=== PATIENT | female | born 1955 | race Caucasian/White ===

== ENCOUNTER → 2016-06-24 | Outpatient (CLI) | payer OTHER ==
--- NOTE | 2016-06-24 10:07 | MAM ---
History: Well woman exam. Date of exam: 06/24/2016 Services provided: Bilateral full field digital screening mammography. CAD, the images were reviewed with R2 computer aided detection. FINDINGS: Glandular tissue is scattered glandular contour with slight nodularity. Comparison with 2010 study. No dominant mass, architectural distortion or clustered microcalcification. IMPRESSION: Benign exam Recommendation: Routine annual mammography BIRAD CATEGORY: 2 BENIGN Electronically signed by: Ligia Tavera MD 06/24/2016 10:06 AM CDT
== END | disposition home or self-care (01) ==
LOC: MAMMO 08:59
PROVIDERS: ATTEND Family Medicine
DX: Z12.31 Encounter for screening mammogram for malignant neoplasm of breast (principal)

== ENCOUNTER → 2016-07-08 | Outpatient (CLI) | payer OTHER | END | disposition home or self-care (01) | LOC: GMAM 14:20 | PROVIDERS: ATTEND Family Medicine | DX: N39.0 Urinary tract infection, site not specified (principal) ==

== ENCOUNTER → 2018-05-11 | Outpatient (CLI) | payer BC, OTHER ==
--- NOTE | 2018-05-12 07:34 | US ---
EXAM DESCRIPTION: Soft Tissue,Extremity: ULTRASOUND. CLINICAL HISTORY: 62 years Female WRIST PAIN COMPARISON: None Available. TECHNIQUE: Transcutaneous scanning: Ward-scale and Doppler modes. FINDINGS: Scanning on the volar aspect of the right wrist. Heterogeneous mass partially echogenic and partially hypoechoic between the muscle layers on the anterior wrist. Minimal vascularity. Dimensions are 6.6 x 1.2 x 1.5 cm. Maximum dimension is parallel to the radius and ulna. No simple fluid component. No large calcifications are. No other solid or cystic mass.. IMPRESSION: Probable hematoma in the muscle layers of the distal anterior right forearm. Minimal blood flow. Maximum dimensions 6.6 cm parallel to the radius and ulna. Electronically signed by: Bishop Chauhan MD 05/12/2018 7:31 AM CDT
== END ==
LOC: US 08:13
PROVIDERS: ATTEND Family Medicine
DX: M25.531 Pain in right wrist (principal)

== ENCOUNTER → 2018-07-14 | Outpatient (CLI) | payer BC ==
--- NOTE | 2018-07-15 13:08 | MAM ---
EXAM DESCRIPTION: 3D Screening BILATERAL : Digital Mammography. CLINICAL HISTORY: 62 years Female ANNUAL SCREENING . No complaints or personal history of breast cancer. Mother with breast and ovarian cancer. Childbirth. Postmenopausal 15+ years. HRT 5 or more years ago. Lifetime risk of developing breast cancer (Tyrer-Cuzick model)(%): 4.7. COMPARISON: 2-D digital screening bilateral mammography 06/24/2016. TECHNIQUE: Bilateral CC and MLO projection full-field images, digital tomosynthesis mammographic technique. Bilateral digital 2-D full-field MLO images. CAD not available for tomosynthesis or 2-D images. FINDINGS: The breast parenchymal density pattern is: Scattered areas of fibroglandular density.. Right axillary lymph nodes. Bilateral solitary microcalcifications. Small nodular densities bilaterally are stable. No new focal, stellate mass or density, focal asymmetry , and no suspicious microcalcifications bilaterally. Stable mammograms compared to prior study. Taking into account, differences in mammographic technique. IMPRESSION: Benign exam. BIRAD CATEGORY: 2 BENIGN FINDINGS. RECOMMENDATIONS: FOLLOW UP: Routine digital bilateral mammographic screening, one year interval from June 2018. Written communication explaining the IMPRESSION and follow-up, will be mailed to the patient and referring health care provider. The FINDINGS and the FOLLOW-UP plan were reviewed in person with the patient after the examination. According to the [employer], yearly mammograms are recommended starting at age 40 and continuing as long as a woman is in good health. Any breast change noted on a breast self-exam should be reported promptly to the patient's healthcare provider. Breast MRI is recommended for women with an approximately 20-25% or greater lifetime risk of breast cancer, including women with a strong family history of breast or ovarian cancer and women who have been treated for Hodgkin's disease. A negative mammographic report should not delay tissue diagnosis in patients with significant clinical history or physical findings. Extremely dense breast tissue limits the sensitivity of digital mammography. Electronically signed by: Bishop Chauhan MD 07/15/2018 1:06 PM CDT
== END ==
LOC: RAD 09:56
PROVIDERS: ATTEND Family Medicine
DX: Z12.31 Encounter for screening mammogram for malignant neoplasm of breast (principal)

== ENCOUNTER → 2018-08-23 | Outpatient (CLI) | payer BC, OTHER ==
--- NOTE | 2018-08-23 13:44 | CT ---
Procedure: CT LUNG SCREENING Exam Date: 08/23/2018. Ordering Provider: Raheem Mcrae Clinical Indication: Personal History of Tobacco Use. Current cigarette smoker. 40 pack years. This patient meets eligibility criteria for low-dose CT lung cancer screening. Comparison: CT scan of the chest with IV contrast, 12/25/2015. Technique: Using a multislice scanner, sequential helical axial imaging was obtained in the thorax, 2.5 mm thickness, 2.5 mm separation, from the level of the thoracic inlet through the lung bases without IV contrast. A low dose protocol was utilized for BMI less than 30: BMI: 27.4. CTDI: 1.76 mGy. 120. kVp. 45 mA. DLP 60.98 mGy-centimeters. 2D sagittal and coronal reconstructed images, 6.0 mm thickness, were obtained. This exam was performed according to our departmental dose optimization program which includes use of automated exposure control, adjustment of the mA and/or kV according to patient size and/or use of iterative reconstruction technique. Nodule measurements under 10 mm are given as mean value of 3 axes diameters. FINDINGS: Lungs and large airways: A mass with partially lobulated and partially circumscribed margins and minimal spiculation is visualized in the posterior aspect of the left lower lobe and contains small air compartment or cavitation. Overall dimensions of the mass 2.2 cm. Solid portion of the mass measures 1.2 x 1.2 x 1.6 cm. Air-filled compartment measures 8 x 6 mm. Minimal parenchymal density and pleural thickening at the same level as the mass. Minimal dilation of airspaces in the upper lobe parenchyma more than mid and lower lung villavicencio. Bibasilar posterior dependent atelectasis, more on the right. No abnormal nodules or other masses. No focal infiltrates. Pleura and space: Bilateral focal pleural thickening with no definitive pleural mass effusion or pneumothorax. Mediastinum and jonelle: evaluation limited by low dose technique and lack of IV contrast. Small mediastinal and left hilar nodes. No dominant soft tissue mass. Heart and great vessels: Atherosclerotic calcification and some of the included brachiocephalic vessels, aortic arch, and descending thoracic aorta. Coronary artery calcifications proximal LAD. Chest wall, lower neck, axillae: Evaluation also limited by same factors as described above. Focal asymmetry lower outer quadrant posterior left breast. Normal size axillary nodes. Thyroid and other soft tissues unremarkable. Upper abdomen: Evaluation limited by low-dose technique. Included peritoneal cavity negative. Included upper abdominal organs unremarkable. Gallbladder partially visualized. Osseous structures: Evaluation limited by low dose MIP technique. Minimal spondylosis thoracic spine. No lytic or blastic lesions. IMPRESSION: 1. Irregular solid 1.2 cm x 1.2 mass with circumscribed margin and partially spiculated margins with a air-filled cavity component more laterally. Overall length 2.2 cm. 1.6 cm craniocaudal. Most likely primary lung malignancy. Less likely to represent a postinflammatory lesion, or metastatic lesion. Emphysematous changes in the upper lung villavicencio. Minimal pleural thickening. [facility] Best Practice recommendations: Please see below for Lung RADS category and FOLLOW-UP.* *Lung RADS category Category 4B(S) - Suspicious - findings for which additional diagnostic testing and/or tissue sampling is recommended (greater than 15% malignancy probability). Nodules: Category 3 or 4 nodule(s) with additional features or imaging findings that increases the suspicion of malignancy. Follow-up: Please return for a Chest CT with or without contrast, PET/CT and/or tissue sampling depending on the "probability of malignancy and comorbidities." PET/CT may be used when there is an 8 mm or greater solid component. 2. Lung RADS Modifier S - Clinically Significant or Potentially Clinically Significant Findings (non lung cancer). Focal asymmetry left breast. Recommend bilateral diagnostic digital breast tomosynthesis and optional left breast targeted ultrasound, if not performed in the past 12 months. Electronically signed by: Bishop Chauhan MD 08/23/2018 1:42 PM CDT
== END ==
LOC: CT 08:00
PROVIDERS: ATTEND Family Medicine
DX: Z87.891 Personal history of nicotine dependence (principal)

== ENCOUNTER → 2018-08-25 | Outpatient (CLI) | payer BC, OTHER | LOC: GMAM 11:38 | PROVIDERS: ATTEND Family Medicine | DX: R61 Generalized hyperhidrosis (principal) ==

== ENCOUNTER 2018-10-13 19:39 | Inpatient (IN) | payer BC, OTHER ==
--- NOTE | 2018-10-13 20:09 | ED.PDOC ---
History of Present Illness - General Chief Complaint: GI Problem Stated Complaint: Nausea/Vomiting Time Seen by Provider: 10/13/18 20:07 Source: patient, family Exam Limitations: no limitations - History of Present Illness Initial Comments: Patient presents with N/V since this morning. She says she has acid reflux and takes Nexium for that. Her reflux has been worse recently. she feels a burning pain in her chest under her sternum. She has not been able to eat today. She has not tried anything for the N/V. No cardiac history. She had a RLL lobectomy for Stage one Lung CA three weeks ago. No chemotherapy and no radiation. No other complaints. Timing/Duration: other - 12 hours Severity: moderate Improving Factors: nothing Worsening Factors: nothing Associated Symptoms: other - as in HPI Allergies/Adverse Reactions: Allergies Codeine Allergy (Verified 12/26/14 07:47) Sulfa Antibiotics Allergy (Verified 12/26/14 07:47) Home Medications: Ambulatory Orders Amlodipine Besylate-Benazepril [Lotrel 10-20 mg] 1 cap PO DAILY 12/26/14 Aspirin [Aspirin Adult Low Dose] 81 mg PO DAILY 12/26/14 Calcium Carbonate-Cholecalcife [Caltrate 600+D 600-400 mg-Unit] 1 chw PO DAILY 12/26/14 Omeprazole [PriLOSEC Cap] 20 mg PO DAILY 12/26/14 Raloxifene HCl [Evista] 60 mg PO DAILY 12/26/14 Review of Systems - Review of Systems Constitutional: States: no symptoms reported EENTM: States: no symptoms reported Respiratory: States: no symptoms reported Cardiology: States: no symptoms reported Gastrointestinal/Abdominal: States: see HPI Genitourinary: States: no symptoms reported Musculoskeletal: States: no symptoms reported Skin: States: no symptoms reported Neurological: States: no symptoms reported Endocrine: States: no symptoms reported Hematologic/Lymphatic: States: no symptoms reported Past Medical History (General) - Patient Medical History Hx Congestive Heart Failure: No Hx Diabetes: No Family Medical History - Family History Mother Family History: Unknown Physical Exam - Physical Exam General Appearance: Alert Eye Exam: bilateral normal Ears, Nose, Throat: normal ENT inspection Neck: non-tender, full range of motion, supple Respiratory: chest non-tender, lungs clear, normal breath sounds, no respiratory distress Cardiovascular/Chest: normal peripheral pulses, regular rate, rhythm, no edema Gastrointestinal/Abdominal: normal bowel sounds, non tender, soft Back Exam: normal inspection, no CVA tenderness Extremity: normal range of motion, non-tender, normal inspection Neurologic: no motor/sensory deficits, alert, normal mood/affect, oriented x 3 Skin Exam: normal color Lymphatic: no adenopathy Progress - Progress Progress: 10/13/18 23:13 Laboratory Tests 10/13/18 10/13/18 10/13/18 20:15 20:15 20:15 WBC 18.4 H RBC 5.09 Hgb 15.5 Hct 44.9 MCV 88.2 MCH 30.4 MCHC 34.5 RDW 12.8 Plt Count 516 H MPV 8.5 Absolute Neuts (auto) 15.40 H Absolute Lymphs (auto) 1.70 Absolute Monos (auto) 1.00 H Absolute Eos (auto) 0.00 Absolute Basos (auto) 0.20 H Neutrophils % 83.7 H Lymphocytes % 9.4 L Monocytes % 5.3 Eosinophils % 0.2 L Basophils % 1.4 PT 9.9 INR 0.99 PTT (SP) 26.5 D-Dimer, Quantitative Sodium 138 Potassium 3.5 L Chloride 103 Carbon Dioxide 20 L Anion Gap 18.5 H BUN 10 Creatinine 0.91 BUN/Creatinine Ratio 11.0 Random Glucose 134 H Serum Osmolality 276.7 Lactic Acid Calcium 10.1 Magnesium Total Bilirubin 0.6 AST 28 ALT 31 Alkaline Phosphatase 123 H Creatine Kinase CK-MB (CK-2) CK-MB (CK-2) % Troponin I B-Natriuretic Peptide Serum Total Protein 7.8 Albumin 3.9 Globulin 3.9 H Albumin/Globulin Ratio 1.0 L 10/13/18 10/13/18 10/13/18 20:15 20:15 20:15 WBC RBC Hgb Hct MCV MCH MCHC RDW Plt Count MPV Absolute Neuts (auto) Absolute Lymphs (auto) Absolute Monos (auto) Absolute Eos (auto) Absolute Basos (auto) Neutrophils % Lymphocytes % Monocytes % Eosinophils % Basophils % PT INR PTT (SP) D-Dimer, Quantitative 4.09 H* Sodium Potassium Chloride Carbon Dioxide Anion Gap BUN Creatinine BUN/Creatinine Ratio Random Glucose Serum Osmolality Lactic Acid Calcium Magnesium 1.7 L Total Bilirubin AST ALT Alkaline Phosphatase Creatine Kinase 56 CK-MB (CK-2) 2.8 CK-MB (CK-2) % Not Reportable Troponin I < 0.02 B-Natriuretic Peptide 66.0 Serum Total Protein Albumin Globulin Albumin/Globulin Ratio 10/13/18 22:40 WBC RBC Hgb Hct MCV MCH MCHC RDW Plt Count MPV Absolute Neuts (auto) Absolute Lymphs (auto) Absolute Monos (auto) Absolute Eos (auto) Absolute Basos (auto) Neutrophils % Lymphocytes % Monocytes % Eosinophils % Basophils % PT INR PTT (SP) D-Dimer, Quantitative Sodium Potassium Chloride Carbon Dioxide Anion Gap BUN Creatinine BUN/Creatinine Ratio Random Glucose Serum Osmolality Lactic Acid 1.9 Calcium Magnesium Total Bilirubin AST ALT Alkaline Phosphatase Creatine Kinase CK-MB (CK-2) CK-MB (CK-2) % Troponin I B-Natriuretic Peptide Serum Total Protein Albumin Globulin Albumin/Globulin Ratio CXR showed LLL effusion. CTA chest showed LLL effusion and pos-surgical changes. No PE. Patient given Rocephin 1 gram IV and azithromycin 500 mg IV in the E.D. Admitted for pneumonia, N/V. Departure - Departure Clinical Impression: Nausea & vomiting, Pneumonia Disposition: Admit Patient Condition: Fair Departure Forms: ED Discharge - Pt. Copy, Patient Portal Self Enrollment Diet: resume usual diet Activity: increase activity as tolerated Referrals: Benoit Zimmerman MD [Primary Care Provider] - 1-2 Weeks Home Medications: Ambulatory Orders Amlodipine Besylate-Benazepril [Lotrel 10-20 mg] 1 cap PO DAILY 12/26/14 Aspirin [Aspirin Adult Low Dose] 81 mg PO DAILY 12/26/14 Calcium Carbonate-Cholecalcife [Caltrate 600+D 600-400 mg-Unit] 1 chw PO DAILY 12/26/14 Omeprazole [PriLOSEC Cap] 20 mg PO DAILY 12/26/14 Raloxifene HCl [Evista] 60 mg PO DAILY 12/26/14
[2018-10-13] MEDS ORDERED: ONDANSETRON INJ 4 MG/2 ML VIAL IV ONE (20:13)
[2018-10-13] MEDS ORDERED: ALUM & MAG HYDROX-SIMETHICONE 30 ML, LIDOCAINE VISCOUS 2% 15 ML PO ONE ×2 (20:13)
[2018-10-13] MEDS ORDERED: ALUM & MAG HYDROX-SIMETHICONE 30 ML UD ONE (20:17)
[2018-10-13] MEDS ORDERED: LIDOCAINE HCL 2% (MOUTH-THROAT) 15 ML UD ONE (20:17)
--- NOTE | 2018-10-13 21:05 | RAD ---
EXAM DESCRIPTION: Chest,2 Views CLINICAL HISTORY: 62 years Female chest burning, s/p RLL lobectomy COMPARISON: Screening CT scan of the chest dated August 23, 2018. TECHNIQUE: Two view study of the chest was performed. FINDINGS: Suspected postsurgical changes left lower lobe. There is history of prior lobectomy likely on the left. Previously noted cavitating nodular lesion left lower lobe identified on CT scan. Mediastinal shift to the left. Small left pleural effusion. Airspace opacity left lung base. Hyperinflation right lung. Mild airspace opacity with linear component right midlung possibly related to the minor fissure. Patchy infrahilar airspace opacity on right. Calcification aortic knob. No pneumothorax. IMPRESSION: Suspected interval right lower lobectomy with atelectatic change versus infiltrate left lower lobe and small left pleural effusion. Loss of volume left hemithorax. Suspected atelectatic change right midlung. Electronically signed by: Lois Sheppard MD 10/13/2018 9:03 PM CDT
[2018-10-13] MEDS ORDERED: PROMETHAZINE HCL INJ 25 MG in SODIUM CHLORIDE 0.9% 50ML 50 ML IVPB ONE (22:42)
--- NOTE | 2018-10-13 22:42 | CT ---
EXAM: CT Abdomen and Pelvis With Intravenous Contrast CLINICAL HISTORY: The patient is 62 years old and is Female; N/V TECHNIQUE: Axial computed tomography images of the abdomen and pelvis with intravenous contrast. Sagittal and coronal reformatted images were created and reviewed. This CT exam was performed using one or more of the following dose reduction techniques: automated exposure control, adjustment of the mA and/or kV according to patient size, and/or use of iterative reconstruction technique. COMPARISON: No relevant prior studies available. FINDINGS: LUNG BASES: Subtle nodular tree-in-bud opacities within the right middle and left lower lobes are present. Suture material is noted within the left lower lobe. PLEURAL SPACE: A small left pleural effusion is present. ABDOMEN: LIVER: Unremarkable. No mass. GALLBLADDER AND BILE DUCTS: No calcified stones. No ductal dilation. PANCREAS: No ductal dilation. No mass. SPLEEN: Unremarkable. ADRENALS: Unremarkable. No mass. KIDNEYS AND URETERS: Unremarkable. No solid mass. No hydronephrosis. STOMACH AND BOWEL: The stomach is minimally fluid filled. The small bowel is decompressed. The colon is also decompressed. Mild diffuse fatty infiltration of the colon is noted which may be secondary to a history of inflammation. There is no bowel obstruction. PELVIS: APPENDIX: The appendix is normal in caliber without surrounding inflammation. BLADDER: Unremarkable. No mass. REPRODUCTIVE: The patient is status post hysterectomy. ABDOMEN and PELVIS: INTRAPERITONEAL SPACE: Unremarkable. No free air. No significant fluid collection. BONES/JOINTS: Mild degenerative change of the spine is present. SOFT TISSUES: Subcutaneous air along the left lower abdominal wall is present. There is a diffuse decrease in hepatic parenchymal density, consistent with fatty infiltration. VASCULATURE: Atherosclerosis of the vasculature is present. No abdominal aortic aneurysm. LYMPH NODES: Unremarkable. No enlarged lymph nodes. IMPRESSION: 1. Small left pleural effusion with postsurgical change in the left lower lobe. 2. Nonspecific scattered groundglass and tree-in-bud opacities within the left lower and right middle lobes suggesting an infectious process. 3. No bowel obstruction. Electronically signed by: Mar Messer MD 10/13/2018 10:40 PM CDT
--- NOTE | 2018-10-13 22:44 | CT ---
EXAM: CT Angiography Chest With Intravenous Contrast CLINICAL HISTORY: The patient is 62 years old and is Female; chest pain, history of recent cancer TECHNIQUE: Axial computed tomographic angiography images of the chest with intravenous contrast using pulmonary embolism protocol. Sagittal and coronal reformatted images were created and reviewed. This CT exam was performed using one or more of the following dose reduction techniques: automated exposure control, adjustment of the mA and/or kV according to patient size, and/or use of iterative reconstruction technique. MIP reconstructed images were created and reviewed. COMPARISON: No relevant prior studies available. FINDINGS: ARTIFACTS: The exam is suboptimal secondary to motion artifact. PULMONARY ARTERIES: The main pulmonary arteries and proximal segmental branches opacify normally and are without filling defect. AORTA: Atherosclerosis of the vasculature is present. No thoracic aortic aneurysm. LUNGS: Postsurgical change of the left lung consistent with patient's recent history. Scattered nodular groundglass opacities are present within the right upper, right middle, and left lower lobes. PLEURAL SPACE: A small left pleural effusion is present. No pneumothorax. HEART: Unremarkable. No cardiomegaly. No significant pericardial effusion. No evidence of RV dysfunction. BONES/JOINTS: No acute fracture. No dislocation. SOFT TISSUES: Subcutaneous air is noted within the the soft tissues of the left axillary region and extending along the left lateral chest wall. Mild edema of the left external oblique musculature is noted. LYMPH NODES: Unremarkable. No enlarged lymph nodes. IMPRESSION: 1. The main pulmonary arteries and proximal segmental branches opacify normally and are without filling defect. The remainder of the vessels are not as well evaluated secondary to motion. 2. Postsurgical change of the left lung with small left pleural effusion. 3. Scattered nodular groundglass opacities. Groundglass opacification is a nonspecific finding and not necessarily indicative of significant pathology. However, in the appropriate clinical setting, pulmonary edema, pneumonia, or various causes of alveolitis should be considered. 4. Subcutaneous air and edema involving the left external oblique musculature, likely secondary to the patient's surgical history. Electronically signed by: Mar Messer MD 10/13/2018 10:43 PM CDT
[2018-10-13] MEDS ORDERED: PROMETHAZINE HCL INJ 25 MG/ML VIAL ONE (22:45)
[2018-10-13] MEDS ORDERED: SODIUM CHLORIDE 0.9% 50ML 50 ML ONE (22:45)
[2018-10-13] MEDS ORDERED: cefTRIAXone SODIUM 1 GM in SODIUM CHL 0.9% 50ML MIN-BAG+ 50 ML IVPB ONE (22:54)
[2018-10-13] MEDS ORDERED: AZITHROMYCIN IV 500 MG in SODIUM CHLORIDE 0.9% 250ML 250 ML IVPB ONE (22:55)
[2018-10-13] MEDS ORDERED: SODIUM CHL 0.9% 50ML MIN-BAG+ 50 ML IVPB ONE (23:05)
[2018-10-13] MEDS ORDERED: AZITHROMYCIN IV 500 MG VIAL IVPB ONE (23:05)
[2018-10-13] MEDS ORDERED: cefTRIAXone SODIUM 1 GM VIAL ONE (23:05)
[2018-10-13] MEDS ORDERED: SODIUM CHLORIDE 0.9% 250ML 250 ML ONE (23:05)
[2018-10-13] MEDS ORDERED: WATER FOR INJ 10 ML VIAL INJ ONE (23:13)
--- NOTE | 2018-10-13 23:29 | HP ---
SUPERVISING PHYSICIAN: Rick Marquez MD CHIEF COMPLAINT: Nausea, vomiting, shortness of breath. HISTORY OF PRESENT ILLNESS: This is a 62-year-old female the patient who was seen in the Emergency Room for nausea, vomiting and shortness of breath. She has felt poorly since Wednesday and actually had some nausea and vomiting on that day, but it was very mild. She also had some shortness of breath. She did recently have a left lower lobe thoracotomy on 09/22/17 for Stage 1 squamous cell carcinoma. Her recovery postoperatively was uneventful. She also had acid reflux type symptoms, but she does have a history of gastroesophageal reflux disease. On the day she presented to the Emergency Room, she had about 12 episodes of vomiting. She did have some loose, watery stools times 3 as well as some mild shortness of breath. In the Emergency Room, her temperature was 97.5, heart rate 76, blood pressure 161/131 followed up by 155/89, respiratory rate 22, O2 saturation 95%. Lab was completed and her WBCs were 18,400 with hemoglobin 15.5, hematocrit 44.9. She had a left shift on her differential. Her D-dimer was elevated at 4.09. Sodium 138, potassium 3.5, chloride 103, carbon dioxide 20, anion gap 18.5, BUN 10, creatinine 0.91, glucose 134, lactic acid 1.9, magnesium 1.7, alkaline phosphatase 123, BNP 66. Cardiac enzymes were negative. Blood cultures were obtained. Her chest x-ray shows suspected interval right lower lobectomy with atelectatic change versus infiltrate in the left lower lobe with a small left pleural effusion with suspected atelectatic change in the right midlung. Her abdomen and pelvis CT showed 1) Small left pleural effusion with postsurgical change to the left lower lobe. 2) Nonspecific scattered ground-glass and tree-in-bud opacities within the left lower and right middle lobe suggesting an infectious process. 3) No bowel obstruction. Her chest/thorax CTA showed 1) The main pulmonary arteries and proximal segmental branches opacify normally and are without filling defect. The remainder of the vessels are not well evaluated secondary to motion. 2) Postsurgical change of the left lung with small left pleural effusion. 3) Scattered nodular ground-glass opacities. Ground-glass opacification is a nonspecific finding and not necessarily indicative of significant pathology. However, in the appropriate clinical setting, pulmonary edema, pneumonia or various causes of alveolitis should be considered. 4) Subcutaneous air and edema involving the left external oblique musculature, likely secondary to the patient's surgical history. The patient was given some Rocephin and azithromycin. She was also given some fluids as well as some promethazine and Zofran. She was admitted to the hospital. PAST MEDICAL HISTORY: 1. Hyperlipidemia. 2. Hypertension. 3. Osteoporosis. 4. Lumbar disc disease. 5. Osteoporosis. 6. Stage 1 squamous cell carcinoma of the lung with left lower lobectomy on 09/22/18. PAST SURGICAL HISTORY: 1. Left lower lobe thoracotomy on 09/22/18. 2. Hysterectomy. 3. Skin graft from right neck to finger. 4. Open ureteropyelostomy. 5. Noncancerous skin lesion removed from her nose. OUTPATIENT MEDICATIONS: Per the EMR and awaiting verification. ALLERGIES: CODEINE, SULFA. FAMILY HISTORY: Positive for skin cancer, breast cancer, ovarian cancer, hypertension, gout and renal stones. SOCIAL HISTORY: She lives in [place]. She is and has two children. She has a 40+ pack year smoking history, but she did quit on 09/06/18 when she received her diagnosis of lung cancer. She denies any ETOH or illicit drug use. REVIEW OF SYSTEMS: GENERAL: Positive for fatigue. Negative for fever or weight changes. HEENT: Negative for sinus symptoms, ear pain, vision changes or sore throat. RESPIRATORY: Positive for shortness of breath. Negative for wheezing, coughing. CARDIAC: Negative for chest pain, palpitations or tachycardia. GASTROINTESTINAL: Per history of present illness. GENITOURINARY: Negative for hematuria, dysuria or polyuria. MUSCULOSKELETAL: Negative for arthralgias, myalgias, back pain. SKIN: Negative for lesions or rashes. NEUROLOGIC: Negative for headache, dizziness or seizures. HEMATOLOGIC: Negative for transfusion reactions or easy bruising. PHYSICAL EXAMINATION: VITAL SIGNS: Temperature 97.1. Heart rate 91. Blood pressure 147/92. Respiratory rate 20. O2 saturation 95% on room air. GENERAL: This is a 62-year-old female patient who is lying in her hospital bed. She is in no acute distress. HEENT: Normocephalic, atraumatic. Pupils are equal and reactive. Oropharynx is clear. NECK: Supple without mass. RESPIRATORY: Essentially clear to auscultation bilaterally, but she is very diminished at the bases. She has poor inspiratory effort. CHEST: There is equal rise and fall of the chest with inspiration and expiration. CARDIOVASCULAR: Regular rate and rhythm. GASTROINTESTINAL: Abdomen is soft, nondistended, nontender. Bowel sounds are positive. EXTREMITIES: No cyanosis, clubbing or edema. NEUROLOGIC: Awake, alert and oriented times three. Cranial nerves II-XII are grossly intact. LABORATORY: Followup lab this morning shows WBC 12,400, hemoglobin 14.1, hematocrit 41.4. She continues to have a left shift on her differential. Sputum culture is pending. Blood cultures are pending. RADIOLOGY: Chest x-ray this morning shows no significant change compared to the prior exam. All other labs and films have been reviewed via the EMR. IMPRESSION: 1. Sepsis secondary to right lower lobe pneumonia, most likely community acquired, but cannot rule out hospital acquired as she was recently in the hospital for a left lower lobe thoracotomy. She had an admitting respiratory rate of 22, WBCs 18,400 with a left shift on her differential and heart rate was 91. 2. Nausea, vomiting and diarrhea, unknown etiology, but the patient has a significant history of gastroesophageal reflux disease. 3. Stage 1 squamous cell carcinoma of the lung status post left lower lobe thoracotomy on 09/22/18. 4. Gastroesophageal reflux disease on a proton pump inhibitor as an outpatient. 5. Hypertension on medications. 6. Carotid artery stenosis. 7. History of osteoporosis. 8. Tobacco abuse with a 40+ pack year history. She quit 09/06/18 when she got her lung cancer diagnosis. PLAN: I have admitted the patient to the hospital. I have initiated the pneumonia guidelines. We will give her aggressive pulmonary hygiene as well as continue her azithromycin and Rocephin. We will monitor her blood cultures as well as her sputum culture. She has antiemetics for her nausea. If she has some diarrhea, we will do stool studies. I have given her some judicious IV fluids. We will repeat her lab in the morning. I have also given her some potassium and magnesium supplementation. She is on a proton pump inhibitor for ulcer prophylaxis and Lovenox for DVT prophylaxis. I will restart her home medications as soon as they are verified. We will continue to monitor the patient closely and follow as needed. [facility][id number] [facility]
[2018-10-14] MEDS ORDERED: LEVALBUTEROL NEBS 1.25 MG/3 ML VIAL INH PRN (00:32)
[2018-10-14] MEDS: IV SET AND CAP CHANGE INJ INJ SCH (00:55)
[2018-10-14] MEDS: PANTOPRAZOLE SODIUM IV 40 MG VIAL IV SCH (06:13)
--- NOTE | 2018-10-14 06:44 | RAD ---
EXAM: Two view chest. INDICATION: Pneumonia. COMPARISON: Chest x-ray: 10/13/2018. FINDINGS: Again noted are changes of a left lobectomy. There are left basilar opacities with blunting of the left costophrenic angle. The right lung is clear. The heart size is stable. There is no pneumothorax. The bones are unchanged. IMPRESSION: No significant change compared to the prior exam. Electronically signed by: Merlin Coates MD 10/14/2018 6:43 AM CDT
[2018-10-14] MEDS ORDERED: SODIUM CHL 0.9% 50ML MIN-BAG+ 50 ML IVPB ONE (06:51)
[2018-10-14] MEDS ORDERED: cefTRIAXone SODIUM 1 GM VIAL ONE (06:51)
[2018-10-14] MEDS: LEVALBUTEROL NEBS 1.25 MG/3 ML VIAL INH SCH ×4 (07:52→20:20)
[2018-10-14] MEDS: cefTRIAXone SODIUM 1 GM in SODIUM CHL 0.9% 50ML MIN-BAG+ 50 ML IVPB SCH (08:25)
[2018-10-14] MEDS ORDERED: AZITHROMYCIN IV 500 MG VIAL IVPB ONE (09:16)
[2018-10-14] MEDS ORDERED: SODIUM CHLORIDE 0.9% 250ML 250 ML ONE (09:16)
[2018-10-14] MEDS: ACETAMINOPHEN 325 MG TAB PO PRN (09:35)
[2018-10-14] MEDS: SODIUM CHLORIDE 0.9% (FLUSH) 10 ML SYG IV SCH ×2 (09:36→20:55)
[2018-10-14] MEDS: LISINOPRIL 10 MG TAB PO SCH (09:36)
[2018-10-14] MEDS: AZITHROMYCIN IV 500 MG in SODIUM CHLORIDE 0.9% 250ML 250 ML IVPB SCH (09:36)
[2018-10-14] MEDS: ASPIRIN (ENTERIC COATED) 81 MG TAB PO SCH (09:36)
[2018-10-14] MEDS: amLODIPine BESYLATE 5 MG TAB PO SCH (09:37)
[2018-10-14] MEDS: METOPROLOL TARTRATE 25 MG TAB PO SCH ×2 (09:37→20:54)
[2018-10-14] MEDS: RALOXIFENE HCL 60 MG PO SCH (09:38)
[2018-10-14] MEDS ORDERED: MAGNESIUM SULFATE PREMIX 2GM 2 GM in PREMIX BAG 1 BAG IVPB ONE (09:38)
[2018-10-14] MEDS ORDERED: MAGNESIUM SULFATE PREMIX 2GM 50 ML IVPB ONE (10:41)
[2018-10-14] MEDS: ENOXAPARIN SODIUM 40 MG/0.4 ML SYG SUBCU SCH (20:54)
[2018-10-15] MEDS: PANTOPRAZOLE SODIUM IV 40 MG VIAL IV SCH (06:01)
[2018-10-15] MEDS ORDERED: SODIUM CHL 0.9% 50ML MIN-BAG+ 50 ML IVPB ONE (07:10)
[2018-10-15] MEDS ORDERED: cefTRIAXone SODIUM 1 GM VIAL ONE (07:11)
[2018-10-15] MEDS: ACETAMINOPHEN 325 MG TAB PO PRN (08:05)
[2018-10-15] MEDS: LEVALBUTEROL NEBS 1.25 MG/3 ML VIAL INH SCH ×4 (08:10→19:41)
[2018-10-15] MEDS: VILANTEROL INH SCH (08:22)
[2018-10-15] MEDS: UMECLIDINIUM INH SCH (08:22)
[2018-10-15] MEDS: cefTRIAXone SODIUM 1 GM in SODIUM CHL 0.9% 50ML MIN-BAG+ 50 ML IVPB SCH (08:59)
[2018-10-15] MEDS: amLODIPine BESYLATE 5 MG TAB PO SCH (09:00)
[2018-10-15] MEDS: SODIUM CHLORIDE 0.9% (FLUSH) 10 ML SYG IV SCH ×2 (09:00→21:01)
[2018-10-15] MEDS: LISINOPRIL 10 MG TAB PO SCH (09:00)
[2018-10-15] MEDS: ASPIRIN (ENTERIC COATED) 81 MG TAB PO SCH (09:00)
[2018-10-15] MEDS: METOPROLOL TARTRATE 25 MG TAB PO SCH ×2 (09:00→20:59)
[2018-10-15] MEDS: RALOXIFENE HCL 60 MG PO SCH (09:06)
[2018-10-15] MEDS ORDERED: SODIUM CHLORIDE 0.9% 250ML 250 ML ONE (09:48)
[2018-10-15] MEDS ORDERED: AZITHROMYCIN IV 500 MG VIAL IVPB ONE (09:48)
[2018-10-15] MEDS: AZITHROMYCIN IV 500 MG in SODIUM CHLORIDE 0.9% 250ML 250 ML IVPB SCH (09:49)
[2018-10-15] MEDS ORDERED: POTASSIUM CHLORIDE 20 MEQ TAB PO ONE (11:57)
--- NOTE | 2018-10-15 19:15 | PN ---
DATE: 10/15/18 SUPERVISING PHYSICIAN: Rick Marquez M.D. SUBJECTIVE: The patient is lying in bed. She is asleep. Awakens easily. States she feels much better but continues to be quite weak. She is coughing up quite a bit of phlegm but denies any significant shortness of breath, nausea or vomiting, diarrhea or chest pain. OBJECTIVE: VITAL SIGNS: Temperature 98.6, heart rate 80, blood pressure 124/79, respiratory rate 16, O2 sat 96% on room air. RESPIRATORY: Diminished at the bases but otherwise clear to auscultation. CARDIAC: Regular rate and rhythm. GASTROINTESTINAL: Abdomen is soft, nondistended, non-tender. Bowel sounds are positive. NEUROLOGIC: She is awake, alert and oriented times three. LABORATORY: CBC is basically within normal limits. Chemistries are unremarkable with the exception of her potassium is slightly low at 3.3. Sputum culture is pending. Preliminary blood cultures show no growth after 24 hours. All other labs and films have been reviewed via the EMR. ASSESSMENT: 1. Sepsis secondary to right lower lobe pneumonia, most likely community acquired, but cannot rule out hospital acquired as she was recently in the hospital for a left lower lobe thoracotomy. She had an admitting respiratory rate of 22, WBCs 18,400 with a left shift on her differential and heart rate was 91. 2. Nausea, vomiting and diarrhea, unknown etiology, but the patient has a significant history of gastroesophageal reflux disease. 3. Stage 1 squamous cell carcinoma of the lung status post left lower lobe thoracotomy on 09/22/18. 4. Gastroesophageal reflux disease on a proton pump inhibitor as an outpatient. 5. Hypertension on medications. 6. Carotid artery stenosis. 7. History of osteoporosis. 8. Tobacco abuse with a 40+ pack year history. She quit 09/06/18 when she got her lung cancer diagnosis. PLAN: We will continue present supportive care. She has received some potassium supplementation and I will repeat her labs in the morning. I will also do a chest x-ray and continue with good aggressive pulmonary hygiene. I have added a flutter valve. I will have some Mucinex to help with her cough. I have given her some Xanax to help with sleeping. Tomorrow she will need to get up and ambulate in the hallways. Hopefully we can discharge her tomorrow or the next day. Will continue to monitor closely and follow as needed. [facility][id number] [facility]
[2018-10-15] MEDS: guaiFENesin ER TAB 600 MG TAB PO SCH (20:59)
[2018-10-15] MEDS: ENOXAPARIN SODIUM 40 MG/0.4 ML SYG SUBCU SCH (20:59)
[2018-10-15] MEDS: ALPRAZolam 0.25 MG TAB PO PRN (21:05)
[2018-10-16] MEDS: PANTOPRAZOLE SODIUM IV 40 MG VIAL IV SCH (06:16)
[2018-10-16] MEDS: SODIUM CHLORIDE 0.9% (FLUSH) 10 ML SYG IV PRN (06:17)
--- NOTE | 2018-10-16 06:44 | RAD ---
EXAM: XR Chest, 2 Views CLINICAL HISTORY: The patient is 62 years old and is Female; pna TECHNIQUE: Frontal and lateral views of the chest. COMPARISON: Chest radiograph October 14, 2018. FINDINGS: LUNGS: Left lower lobe airspace opacity is present. The right lung is clear. PLEURAL SPACE: Persistent left pleural effusion is noted. No pneumothorax. HEART: Unremarkable. No cardiomegaly. MEDIASTINUM: Unremarkable. BONES/JOINTS: Unremarkable. IMPRESSION: Stable chest. Electronically signed by: Mar Messer MD 10/16/2018 6:42 AM CDT
[2018-10-16] MEDS ORDERED: cefTRIAXone SODIUM 1 GM VIAL ONE (08:17)
[2018-10-16] MEDS ORDERED: SODIUM CHL 0.9% 50ML MIN-BAG+ 50 ML IVPB ONE (08:17)
[2018-10-16] MEDS: LEVALBUTEROL NEBS 1.25 MG/3 ML VIAL INH SCH ×4 (08:26→19:31)
[2018-10-16] MEDS: VILANTEROL INH SCH (08:26)
[2018-10-16] MEDS: UMECLIDINIUM INH SCH (08:26)
[2018-10-16] MEDS: LISINOPRIL 10 MG TAB PO SCH (09:39)
[2018-10-16] MEDS: amLODIPine BESYLATE 5 MG TAB PO SCH (09:39)
[2018-10-16] MEDS: guaiFENesin ER TAB 600 MG TAB PO SCH ×2 (09:39→20:49)
[2018-10-16] MEDS: cefTRIAXone SODIUM 1 GM in SODIUM CHL 0.9% 50ML MIN-BAG+ 50 ML IVPB SCH (09:39)
[2018-10-16] MEDS: RALOXIFENE HCL 60 MG PO SCH (09:39)
[2018-10-16] MEDS: METOPROLOL TARTRATE 25 MG TAB PO SCH ×2 (09:39→20:49)
[2018-10-16] MEDS: ASPIRIN (ENTERIC COATED) 81 MG TAB PO SCH (09:39)
[2018-10-16] MEDS: SODIUM CHLORIDE 0.9% (FLUSH) 10 ML SYG IV SCH ×2 (09:40→20:49)
[2018-10-16] MEDS ORDERED: AZITHROMYCIN IV 500 MG VIAL IVPB ONE (10:33)
[2018-10-16] MEDS ORDERED: SODIUM CHLORIDE 0.9% 250ML 250 ML ONE (10:33)
[2018-10-16] MEDS: AZITHROMYCIN IV 500 MG in SODIUM CHLORIDE 0.9% 250ML 250 ML IVPB SCH (10:39)
--- NOTE | 2018-10-16 16:56 | PN ---
DATE: SUPERVISING PHYSICIAN: Rick Marquez M.D. SUBJECTIVE: The patient is sitting up in bed. She does feel better but continues to feel weak. Shortness of breath has improved greatly. Denies chest pain, nausea, vomiting, diarrhea or constipation. We discussed her discharge plan and I have encouraged her to get up and walk in the hallways today as much as possible. OBJECTIVE: VITAL SIGNS: Temperature 98.6, heart rate 72, blood pressure 154/74, respiratory rate 18, O2 sat 95% on room air. RESPIRATORY: Slightly diminished at the bases but otherwise clear to auscultation. CARDIAC: Regular rate and rhythm. GASTROINTESTINAL: Abdomen is soft, nondistended, non-tender. Bowel sounds are positive. NEUROLOGIC: She is awake, alert and oriented times three. LABORATORY: Chemistries: Electrolytes are basically within normal limits. Sputum culture is pending. Preliminary blood cultures show no growth after 48 hours. Chest x-ray shows a stable chest. All other labs and films have been reviewed via the EMR. ASSESSMENT: 1. Sepsis secondary to right lower lobe pneumonia, most likely community acquired, but cannot rule out hospital acquired as she was recently in the hospital for a left lower lobe thoracotomy. She had an admitting respiratory rate of 22, WBCs 18,400 with a left shift on her differential and heart rate was 91. 2. Nausea, vomiting and diarrhea, unknown etiology, but the patient has a significant history of gastroesophageal reflux disease. 3. Stage 1 squamous cell carcinoma of the lung status post left lower lobe thoracotomy on 09/22/18. 4. Gastroesophageal reflux disease on a proton pump inhibitor as an outpatient. 5. Hypertension on medications. 6. Carotid artery stenosis. 7. History of osteoporosis. 8. Tobacco abuse with a 40+ pack year history. She quit 09/06/18 when she got her lung cancer diagnosis. PLAN: We will continue present supportive care. I will hold on any lab as that is stable today. She has been encouraged to ambulate at least 4 times a day in the hallways. I have also spoken to the nurse and we will get her up moving around. If she tolerates that without any shortness of breath or complications, hopefully she can be discharged home tomorrow with close followup with her primary care physician, Dr. Zimmerman. #[id number] [facility]
[2018-10-16] MEDS: ENOXAPARIN SODIUM 40 MG/0.4 ML SYG SUBCU SCH (20:49)
[2018-10-16] MEDS: ALPRAZolam 0.25 MG TAB PO PRN (20:49)
[2018-10-17] MEDS: IV SET AND CAP CHANGE INJ INJ SCH (00:32)
[2018-10-17] MEDS: PANTOPRAZOLE SODIUM IV 40 MG VIAL IV SCH (05:51)
[2018-10-17] MEDS: SODIUM CHLORIDE 0.9% (FLUSH) 10 ML SYG IV PRN (05:52)
[2018-10-17 06:06] VITALS: TEMP 98.3
[2018-10-17] MEDS ORDERED: cefTRIAXone SODIUM 1 GM VIAL ONE (06:46)
[2018-10-17] MEDS ORDERED: SODIUM CHL 0.9% 50ML MIN-BAG+ 50 ML IVPB ONE (06:46)
[2018-10-17] MEDS: UMECLIDINIUM INH SCH (07:58)
[2018-10-17] MEDS: VILANTEROL INH SCH (07:58)
[2018-10-17] MEDS: LEVALBUTEROL NEBS 1.25 MG/3 ML VIAL INH SCH (07:58)
[2018-10-17] MEDS: SODIUM CHLORIDE 0.9% (FLUSH) 10 ML SYG IV SCH (08:31)
[2018-10-17] MEDS: cefTRIAXone SODIUM 1 GM in SODIUM CHL 0.9% 50ML MIN-BAG+ 50 ML IVPB SCH (08:32)
[2018-10-17] MEDS: guaiFENesin ER TAB 600 MG TAB PO SCH (08:32)
[2018-10-17] MEDS: ASPIRIN (ENTERIC COATED) 81 MG TAB PO SCH (08:32)
[2018-10-17] MEDS: amLODIPine BESYLATE 5 MG TAB PO SCH (08:32)
[2018-10-17] MEDS: METOPROLOL TARTRATE 25 MG TAB PO SCH (08:32)
[2018-10-17] MEDS: LISINOPRIL 10 MG TAB PO SCH (08:32)
[2018-10-17] MEDS ORDERED: AZITHROMYCIN IV 500 MG VIAL IVPB ONE (08:48)
[2018-10-17] MEDS ORDERED: SODIUM CHLORIDE 0.9% 250ML 250 ML ONE (08:48)
[2018-10-17] MEDS: RALOXIFENE HCL 60 MG PO SCH (09:59)
[2018-10-17] MEDS: AZITHROMYCIN IV 500 MG in SODIUM CHLORIDE 0.9% 250ML 250 ML IVPB SCH (10:09)
[2018-10-17 10:56] VITALS: BP 152/89; O2SAT 96
--- NOTE | 2018-10-18 15:05 | DS ---
SUPERVISING PHYSICIAN: Efe Rios MD ADMISSION DIAGNOSIS: 1. Sepsis secondary to right lower lobe pneumonia, most likely community acquired, but cannot rule out hospital acquired as she was recently in the hospital for a left lower lobe thoracotomy. She had an admitting respiratory rate of 22, WBCs 18,400 with a left shift on her differential and heart rate was 91. 2. Nausea, vomiting and diarrhea, unknown etiology, but the patient has a significant history of gastroesophageal reflux disease. 3. Stage 1 squamous cell carcinoma of the lung status post left lower lobe thoracotomy on 09/22/18. 4. Gastroesophageal reflux disease on a proton pump inhibitor as an outpatient. 5. Hypertension on medications. 6. Carotid artery stenosis. 7. History of osteoporosis. 8. Tobacco abuse with a 40+ pack year history. She quit 09/06/18 when she got her lung cancer diagnosis. DISCHARGE DIAGNOSIS: 1. Sepsis secondary to right lower lobe pneumonia, community acquired, with the the patient showing good response to therapy with a history of left lower thoracotomy recently. 2. Nausea, vomiting and diarrhea, uncertain etiology, but resolved prior to discharge, felt probably due to exacerbation of gastroesophageal reflux disease. 3. Stage 1 squamous cell carcinoma of the lung status post left lower lobe thoracotomy on 09/22/18. 4. Gastroesophageal reflux disease on a proton pump inhibitor as an outpatient. 5. Hypertension on medications. 6. Carotid artery stenosis. 7. History of osteoporosis. 8. Tobacco abuse with a 40+ pack year history. She quit 09/06/18 when she got her lung cancer diagnosis. REASON FOR HOSPITALIZATION: This is a 62-year-old female the patient who was seen in the Emergency Room for nausea, vomiting and shortness of breath. She has felt poorly since Wednesday and actually had some nausea and vomiting on that day, but it was very mild. She also had some shortness of breath. She did recently have a left lower lobe thoracotomy on 09/22/17 for Stage 1 squamous cell carcinoma. Her recovery postoperatively was uneventful. She also had acid reflux type symptoms, but she does have a history of gastroesophageal reflux disease. On the day she presented to the Emergency Room, she had about 12 episodes of vomiting. She did have some loose, watery stools times 3 as well as some mild shortness of breath. In the Emergency Room, her temperature was 97.5, heart rate 76, blood pressure 161/131 followed up by 155/89, respiratory rate 22, O2 saturation 95%. Lab was completed and her WBCs were 18,400 with hemoglobin 15.5, hematocrit 44.9. She had a left shift on her differential. Her D-dimer was elevated at 4.09. Sodium 138, potassium 3.5, chloride 103, carbon dioxide 20, anion gap 18.5, BUN 10, creatinine 0.91, glucose 134, lactic acid 1.9, magnesium 1.7, alkaline phosphatase 123, BNP 66. Cardiac enzymes were negative. Blood cultures were obtained. Her chest x-ray shows suspected interval right lower lobectomy with atelectatic change versus infiltrate in the left lower lobe with a small left pleural effusion with suspected atelectatic change in the right midlung. Her abdomen and pelvis CT showed 1) Small left pleural effusion with postsurgical change to the left lower lobe. 2) Nonspecific scattered ground-glass and tree-in-bud opacities within the left lower and right middle lobe suggesting an infectious process. 3) No bowel obstruction. Her chest/thorax CTA showed 1) The main pulmonary arteries and proximal segmental branches opacify normally and are without filling defect. The remainder of the vessels are not well evaluated secondary to motion. 2) Postsurgical change of the left lung with small left pleural effusion. 3) Scattered nodular ground-glass opacities. Ground-glass opacification is a nonspecific finding and not necessarily indicative of significant pathology. However, in the appropriate clinical setting, pulmonary edema, pneumonia or various causes of alveolitis should be considered. 4) Subcutaneous air and edema involving the left external oblique musculature, likely secondary to the patient's surgical history. The patient was given some Rocephin and azithromycin. She was also given some fluids as well as some promethazine and Zofran. She was admitted to the hospital. LABORATORY: On admission, white count was 18,400 with a left shift. Prior to discharge, white count had normalized to 7,400, left shift had resolved. Hemoglobin 14.4 and hematocrit 41.8, stable. Platelet count 407,000. Coagulation studies showed elevated D-dimer 4.09, but the patient had recently had surgery and has a history of cancer. PT, PTT were normal. Chemistries on discharge were within normal limits. MICROBIOLOGY: Sputum cultures were collected, but cancelled due to poor specimen. She had two sets of blood cultures that were negative after 3 days. RADIOLOGY: She had a chest thoracic CTA due to the elevated D-dimer and per radiologic interpretation was without any filling defects with further findings of ground glass opacification, scattered nodular ground glass opacities. Please see that report for details. She also had an abdominopelvic CT and per radiologic interpretation showed small left pleural effusion, post surgical changes of left lower lobe, again, nonspecific ground glass tree in bud opacities within left lower and middle lobes suggesting an infectious process. No bowel obstruction. Please see that report for details. She also had multiple chest x-rays post admission with the last one being on , the day before discharge, and was showing per radiologic interpretation of two-view chest, a stable chest. HOSPITAL COURSE: Ms. Zimmerman was admitted for right lower lobe pneumonia and started on antibiotic coverage with azithromycin and Rocephin. She was started on aggressive pulmonary hygiene. She showed good clinical response to treatment, was ambulating without any complication and was felt strong enough and clinically improved well enough to go home and continue with outpatient management. PLAN: Ms. Zimmerman was discharged on 10/17/[address] Zimmerman. She was to call his office on Wednesday to schedule a followup appointment. She has an appointment to see Dr. Lange later this month, I believe on the . She was to resume her home medications as instructed and continue antibiotic coverage as directed with cefdinir. She was told to return to the hospital should she have any worsening symptoms. Diet on discharge was diet as tolerated and activity as tolerated. MEDICATIONS ON DISCHARGE: 1. Xopenex nebulizers 1.25 mg between meals q.8h. as needed for shortness of breath, #24, no refills. 2. Cefdinir 300 mg twice daily, #10, no refills. 3. Guaifenesin 600 mg twice daily, no refills. She did have a full course of azithromycin 3 doses at 500 mg and therefore is not continued on azithromycin on discharge. CONDITION ON DISCHARGE: Stable and improving. DISPOSITION: The patient was discharged home. #[id number] [facility]
== END 2018-10-17 11:21 | disposition home or self-care (01) | DRG 871 ==
LOC: ER 19:39 → MS 23:28 → OBSVTOIN 23:28
PROVIDERS: ADMIT Nurse Practitioner Acute Care; ATTEND Nurse Practitioner Family
PROC: B32T1ZZ Computerized Tomography (CT Scan) of Left Pulmonary Artery using Low Osmolar Contrast (ICD-10-PCS; principal; 2018-10-13)
PROC: B3201ZZ Computerized Tomography (CT Scan) of Thoracic Aorta using Low Osmolar Contrast (ICD-10-PCS; 2018-10-13)
PROC: B32S1ZZ Computerized Tomography (CT Scan) of Right Pulmonary Artery using Low Osmolar Contrast (ICD-10-PCS; 2018-10-13)
PROC: BW211ZZ Computerized Tomography (CT Scan) of Abdomen and Pelvis using Low Osmolar Contrast (ICD-10-PCS; 2018-10-13)
DX: A41.9 Sepsis, unspecified organism (principal); J18.1 Lobar pneumonia, unspecified organism; K21.9 Gastro-esophageal reflux disease without esophagitis; R11.2 Nausea with vomiting, unspecified; I10 Essential (primary) hypertension; M51.36 Other intervertebral disc degeneration, lumbar region; M81.0 Age-related osteoporosis without current pathological fracture; Z90.2 Acquired absence of lung [part of]; Z88.2 Allergy status to sulfonamides; Z88.5 Allergy status to narcotic agent; Z87.891 Personal history of nicotine dependence; Z85.118 Personal history of other malignant neoplasm of bronchus and lung; Z79.82 Long term (current) use of aspirin; Z79.899 Other long term (current) drug therapy

== ENCOUNTER → 2019-06-12 | Outpatient (CLI) | payer BC | LOC: GMAM 11:27 | PROVIDERS: ATTEND Family Medicine | DX: D51.9 Vitamin B12 deficiency anemia, unspecified (principal); E55.9 Vitamin D deficiency, unspecified; I10 Essential (primary) hypertension ==

== ENCOUNTER 2019-07-04 06:38 | Emergency (ER) | payer BC ==
[2019-07-04] MEDS ORDERED: SODIUM CHLORIDE 0.9% (FLUSH) 10 ML SYG IV PRN (06:50)
[2019-07-04] MEDS ORDERED: ONDANSETRON INJ 4 MG/2 ML VIAL IV ONE (06:50)
--- NOTE | 2019-07-04 07:07 | ED.PDOC ---
History of Present Illness - General Chief Complaint: GI Problem Stated Complaint: N/V abd pain since yesterday morning Time Seen by Provider: 07/04/19 06:49 Information Source: patient, RN notes reviewed, Vital Signs reviewed, family Exam Limitations: no limitations - History of Present Illness Initial Comments: Pt is a 63 yo female who presents to ED for 24 hour h/o nausea, vomiting, diarrhea and upper abdominal pain. States she has vomited 10 times and multiple loose stools. Reports crampy, upper abdominal pain. Has had subjective fever and nonproductive cough. Denies CP, flank pain or dysuria. PSH includes hysterectomy and right kidney surgery. Review of Systems - Review of Systems Constitutional: States: fever - subjective. Denies: chills EENTM: Denies: blurred vision, ear pain, throat pain Respiratory: States: cough. Denies: short of breath Cardiology: Denies: chest pain, edema, palpitations, syncope Gastrointestinal/Abdominal: States: abdominal pain, diarrhea, nausea, vomiting Genitourinary: Denies: dysuria, frequency, hematuria Musculoskeletal: Denies: back pain, muscle pain Neurological: Denies: headache, weakness Hematologic/Lymphatic: States: no symptoms reported All other Systems: Reviewed and Negative Past Medical History (General) - Patient Medical History Hx Seizures: No Hx Stroke: No Hx Asthma: No Hx of COPD: Yes - left lung lobetecomy Hx Congestive Heart Failure: No Hx Pacemaker: No Hx Hypertension: Yes Hx Diabetes: No Hx Gastroesophageal Reflux: Yes Hx Cancer: Yes - lung Hx MRSA: No Surgical History: Hysterectomy, other - Vaccination History Hx Tetanus, Diphtheria Vaccination: No Hx Influenza Vaccination: No Hx Pneumococcal Vaccination: Yes Immunizations Up to Date: No - Social History Hx Tobacco Use: No Hx Alcohol Use: No Hx Substance Use: No Hx Physical Abuse: No Hx Emotional Abuse: No Family Medical History - Family History Mother Family History: Unknown Hx Family Cancer: Yes - ovarian Physical Exam - Physical Exam General Appearance: Alert, Comfortable, No apparent distress Neck: non-tender, full range of motion, supple Respiratory: chest non-tender, lungs clear, normal breath sounds, no respiratory distress Cardiovascular/Chest: regular rate, rhythm, no edema, no murmur Gastrointestinal/Abdominal: soft, other - Mild TTP diffuely. No guarding or rigidity Back Exam: no CVA tenderness, no vertebral tenderness Extremity: non-tender, normal inspection, no pedal edema Neurologic: no motor/sensory deficits, alert, normal mood/affect, oriented x 3 Skin Exam: normal color, warm/dry Progress - Progress Progress: 07/04/19 08:56 Pt presents with 24 hour h/o NVD and crampy abdominal pain. Labs and imaging are reassuring. Post meds and IVF, pt feels improved and tolerating po fluids well. Has mild hypokalemia, likely due to GI losses. Now tolerating po and will DC home on Zofran. i have recommended f/u with pcp in 1-2 days for continued outpatient evaluation. SRP given. - Results/Orders Results/Orders: EKG--NSR, rate 93, nml intervals, no ST abnormality CHEST XRAY Indication:Cough, vomiting Comparison: October 16, 2018 Impression: Patient rotated to the left. Mild cardiomegaly without failure. Mild blunting left costophrenic angle but improved compared to the prior and may reflect scarring or a tiny pleural effusion. Mild bilateral basilar atelectasis. No pneumothorax. Atherosclerosis aorta. No acute osseous abnormality. CT ABDOMEN/PELVIS IMPRESSION: 1. No free fluid or free air. No fatty stranding or fascial thickening in the mesentery. Small scattered nodes are stable since the prior study. 2. Diffuse fatty infiltration and edema with no distention or obstruction in the colon. No pericolonic inflammatory changes or free fluid. 07/04/19 06:50 Sodium Chloride 0.9% (Flush) [Saline Flush Syringe] 10 ml IV PRN PRN 07/04/19 07:00 EKG STAT 07/04/19 07:04 Hold Metformin x 48Hrs [id number] Laboratory Results - last 24 hr 07/04/19 07/04/19 07/04/19 06:55 06:55 07:23 WBC 12.5 H RBC 5.63 H Hgb 16.4 H Hct 49.5 H MCV 87.9 MCH 29.2 MCHC 33.2 RDW 13.0 Plt Count 265 MPV 9.3 Absolute Neuts (auto) Not Reportable Absolute Lymphs (auto) Not Reportable Absolute Monos (auto) Not Reportable Absolute Eos (auto) Not Reportable Neutrophils % Not Reportable Neutrophils % (Manual) 89.0 H Lymphocytes % Not Reportable Lymphocytes % (Manual) 9.0 Monocytes % Not Reportable Monocytes % (Manual) 2.0 Eosinophils % Not Reportable Basophils % Not Reportable Platelet Estimate Normal Normal RBC Morphology Normal rbc morph Sodium 139 Potassium 3.1 L Chloride 105 Carbon Dioxide 21 Anion Gap 16.1 BUN 19 H Creatinine 0.98 BUN/Creatinine Ratio 19.4 Random Glucose 211 H Serum Osmolality 286.0 Calcium 9.8 Total Bilirubin 0.7 Direct Bilirubin 0.1 Indirect Bilirubin 0.6 AST 34 ALT 20 Alkaline Phosphatase 98 Serum Total Protein 8.0 Albumin 4.6 Lipase 24 Urine Color Yellow Urine Appearance Cloudy Urine pH 5.5 Ur Specific [place] >= 1.030 Urine Protein >=300 H Urine Glucose (UA) Negative Urine Ketones 40 H Urine Blood Moderate H Urine Nitrite Negative Urine Bilirubin Moderate Urine Urobilinogen 0.2 Ur Leukocyte Esterase Negative Urine RBC 1-3 Urine WBC 1-3 Ur Epithelial Cells 10-20 Amorphous Sediment 2+ Urine Bacteria 2+ H Urine Mucus Large Urine Yeast Rare Departure - Departure Clinical Impression: Viral gastroenteritis, Non-intractable vomiting with nausea Leukocytosis Qualifiers: Leukocytosis type: unspecified Qualified Code(s): D72.829 - Elevated white blood cell count, unspecified Time of Disposition: 08:55 Disposition: Discharge to Home or Self Care Condition: Good Departure Forms: ED Discharge - Pt. Copy, Patient Portal Self Enrollment Instructions: DI for Abdominal Pain-Adult Diet: bland diet Activity: increase activity as tolerated Referrals: Benoit Zimmerman MD [Primary Care Provider] - 1-2 Days Prescriptions: Ondansetron HCl [Zofran] 4 mg PO Q6HR PRN #15 tab PRN Reason: Nausea Home Medications: Ambulatory Orders Amlodipine Besylate-Benazepril [Lotrel 10-20 mg] 1 cap PO DAILY 12/26/14 Raloxifene HCl [Evista] 60 mg PO DAILY 12/26/14 Atorvastatin Calcium [Lipitor] 10 mg PO DAILY 07/04/19 Ergocalciferol [Vitamin D] 50,000 unit PO .WEEKLY 07/04/19 Ondansetron HCl [Zofran] 4 mg PO Q6HR PRN #15 tab 07/04/19 Vortioxetine HBr [Trintellix] 20 mg PO DAILY 07/04/19
--- NOTE | 2019-07-04 07:35 | RAD ---
Study: Single Frontal Radiograph of the Chest. Indication:Cough, vomiting Comparison: October 16, 2018 Impression: Patient rotated to the left. Mild cardiomegaly without failure. Mild blunting left costophrenic angle but improved compared to the prior and may reflect scarring or a tiny pleural effusion. Mild bilateral basilar atelectasis. No pneumothorax. Atherosclerosis aorta. No acute osseous abnormality. Electronically signed by: Serge Guerra MD 07/04/2019 7:34 AM CDT
[2019-07-04] MEDS ORDERED: PROMETHAZINE HCL INJ 25 MG in SODIUM CHLORIDE 0.9% 50ML 50 ML IVPB ONE (07:42)
[2019-07-04] MEDS ORDERED: SODIUM CHLORIDE 0.9% 50ML 50 ML ONE (07:44)
[2019-07-04] MEDS ORDERED: PROMETHAZINE HCL INJ 25 MG/ML VIAL ONE (07:44)
--- NOTE | 2019-07-04 08:49 | CT ---
EXAM DESCRIPTION: Abdomen/Pelvis w/Contrast: Computed Tomography. CLINICAL HISTORY: 63 years Female abd pain, N/V COMPARISON: CT abdomen and pelvis September 2018. TECHNIQUE: Spiral-axial scans at 5 x 5 mm intervals through the abdomen and pelvis, after nonionic IV contrast no oral contrast. Coronal and sagittal 2.0 mm reconstructions. No adverse reactions. Total Exam DLP: 813 mGy-cm. This exam was performed according to our departmental dose-optimization program which includes automated exposure control, adjustment of the mA and/or kV according to patient size and/or use of iterative reconstruction technique; to reduce radiation dose to as low as reasonably achievable (ALARA). FINDINGS: Lung bases and pleura: Pleural parenchymal scarring in the inferior lingula. Borderline cardiomegaly. Liver, Stomach, Spleen, Adrenal Glands: Negative. Pancreas, Gallbladder, Ducts: Gallbladder mildly distended but no inflammatory changes. Pancreas and duct negative. 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 Subcentimeter cyst inferior. Otherwise both kidneys and ureters are unremarkable. Mesentery: Scattered small nodes. No free air or free fluid. No fatty stranding or fascial thickening. Aorta: Moderate atherosclerotic disease and calcifications including the major branch vessels, especially ostia of the left renal artery. Small Bowel: Negative. Terminal Ileum/Cecum: Minimal fecal matter with normal caliber including the appendix. No inflammatory changes. Colon: Edema/fat in the huggins beginning mid descending colon extending to the rectosigmoid. Stable since the prior study. No pericolonic inflammatory changes in the fat and no fluid in the paracolic gutters. No obstruction. Pelvic Organs: Negative with no free fluid. Spine and Bony Pelvis: Spondylosis lower thoracic spine. L5-S1 disc bulging. Abdominal Wall/Back Soft Tissues: Negative. IMPRESSION: 1. No free fluid or free air. No fatty stranding or fascial thickening in the mesentery. Small scattered nodes are stable since the prior study. 2. Diffuse fatty infiltration and edema with no distention or obstruction in the colon. No pericolonic inflammatory changes or free fluid. Electronically signed by: Bishop Chauhan MD 07/04/2019 8:47 AM CDT
[2019-07-04 09:11] VITALS: BP 147/88; TEMP 97.7; O2SAT 97
== END 2019-07-04 09:04 | disposition home or self-care (01) ==
LOC: ER 06:38
DX: A08.4 Viral intestinal infection, unspecified (principal); D72.829 Elevated white blood cell count, unspecified; I10 Essential (primary) hypertension; K21.9 Gastro-esophageal reflux disease without esophagitis; J44.9 Chronic obstructive pulmonary disease, unspecified; Z85.118 Personal history of other malignant neoplasm of bronchus and lung; E87.6 Hypokalemia
CPT/HCPCS: 36415; 71045; 74177; 80048; 80076; 81001; 83690; 85025; 93005; A4216; J2405; J2550

== ENCOUNTER → 2019-07-18 | Outpatient (CLI) | payer BC ==
--- NOTE | 2019-07-19 17:14 | MAM ---
EXAM DESCRIPTION: 3D Screening BILATERAL : Digital Mammography. CLINICAL HISTORY: 63 years Female ANNUAL SCREENING . No personal history of breast cancer. No complaints. Mother with ovarian cancer and remote family history of breast cancer. Menarche age 17. Childbirth age 18. Menopause age unknown. HRT 5 or more years ago. . Lifetime risk of developing breast cancer (Tyrer-Cuzick model)(%): 4.6. COMPARISON: Bilateral screening digital breast tomosynthesis June 2018 and 2-D digital screening bilateral mammography June 2016.. TECHNIQUE: Bilateral CC and MLO projection full-field images, with [employer] Displacement digital tomosynthesis mammographic technique. Bilateral 2-D digital full-field images, MLO and CC projections, non-displaced. Bilateral digital 2-D full-field MLO images. and CC images. CAD available for 2-D images. FINDINGS: The breast parenchymal density pattern is: Scattered areas of fibroglandular density. No skin thickening or nipple retraction. Right axillary nodes. Bilateral intramammary nodes. Bilateral solitary microcalcifications. Vascular calcifications. No new focal, stellate mass or density, focal asymmetry , and no suspicious microcalcifications bilaterally. Stable mammograms compared to prior study. . IMPRESSION: Benign exam. BIRAD CATEGORY: 2 BENIGN FINDINGS. RECOMMENDATIONS: FOLLOW UP: Routine digital bilateral mammographic screening, one year interval from June 2019. Written communication explaining the IMPRESSION and follow-up, will be mailed to the patient and referring health care provider. According to the [employer], yearly mammograms are recommended starting at age 40 and continuing as long as a woman is in good health. Any breast change noted on a breast self-exam should be reported promptly to the patient's healthcare provider. Breast MRI is recommended for women with an approximately 20-25% or greater lifetime risk of breast cancer, including women with a strong family history of breast or ovarian cancer and women who have been treated for Hodgkin's disease. A negative mammographic report should not delay tissue diagnosis in patients with significant clinical history or physical findings. Extremely dense breast tissue limits the sensitivity of digital mammography. Electronically signed by: Bishop Chauhan MD 07/19/2019 5:12 PM CDT
== END ==
LOC: MAMMO 10:00
PROVIDERS: ATTEND Family Medicine
DX: Z12.31 Encounter for screening mammogram for malignant neoplasm of breast (principal)

== ENCOUNTER → 2019-08-22 | Outpatient (CLI) | payer BC | LOC: GMAM 10:29 | PROVIDERS: ATTEND Family Medicine | DX: D51.9 Vitamin B12 deficiency anemia, unspecified (principal); E55.9 Vitamin D deficiency, unspecified ==

== ENCOUNTER → 2019-09-25 | Outpatient (CLI) | payer BC ==
--- NOTE | 2019-09-25 16:37 | US ---
EXAM DESCRIPTION: Venous,Lower Extremity RT: ULTRASOUND. CLINICAL HISTORY: PAIN IN RIGHT ANKLE AND JOINTS OF RIGHT FOOT COMPARISON: None Available. TECHNIQUE: Ward-scale and doppler sonographic evaluation of the deep venous system of the right lower extremity. FINDINGS: Doppler evaluation shows normal color flow and normal phasicity and augmentation of the right common femoral vein, right femoral vein, popliteal vein, greater saphenous vein, junction with the CFV. Also normal color flow and normal phasicity and augmentation of the peroneal, and posterior tibial vein. The right lower extremity deep veins were completely compressible; normal occlusion with transducer pressure. Ward-scale survey showed no echogenic thrombus within these veins. IMPRESSION: 1. Duplex ultrasound evaluation of the right lower extremity deep venous system showing no evidence of thrombosis. Electronically signed by: Bishop Chauhan MD 09/25/2019 4:36 PM CDT
== END ==
LOC: US 14:58
PROVIDERS: ATTEND Family Medicine
DX: M25.571 Pain in right ankle and joints of right foot (principal)

== ENCOUNTER → 2019-12-11 | Outpatient (CLI) | payer BC | LOC: GMAM 11:08 | PROVIDERS: ATTEND Family Medicine | DX: M25.571 Pain in right ankle and joints of right foot (principal) ==

== ENCOUNTER → 2019-12-19 | Outpatient (CLI) | payer BC ==
--- NOTE | 2019-12-19 14:29 | MRI ---
Study: MRI of the Right Ankle. Indication: ANKLE PAIN Technique: Multiplanar, multi sequence MRI of the right ankle was obtained without intravenous contrast. Comparison: None Findings: Extensive marrow edema throughout the intermediate cuneiform with a subtle coronally oriented fracture of the dorsal/proximal margin of the bone, likely stress-related. Additional partially stress-related marrow edema throughout the proximal aspects of the fourth metatarsal. Extensive subcutaneous edema about the ankle. Prominent plantar calcaneal heel spur with mild internal marrow edema. Inflammation and partial thickness tearing of the origin central cord plantar fascia. Achilles tendon intact. Mild tenosynovitis medial tendons and peroneal tendons with subtle tendinosis and longitudinal fissuring of the peroneus brevis tendon. No rupture. Anterior tendons intact. Prior sprain anterior talofibular ligament. No acute fluid filled tear of the medial or lateral ankle ligaments. Ankle mortise alignment normal. Talar dome intact. Mild edema of the calcaneus at the angle of Gissane indicating subtalar impingement. Minimal subtalar joint osteoarthritis posteriorly. Tiny subcortical cyst with internal marrow edema of the plantar margin of the head of the talus. Impression: Nondisplaced fracture dorsal/proximal margin of the intermediate cuneiform, likely stress-related with additional marrow edema in the proximal fourth metatarsal. Plantar fasciitis with partial thickness tearing of the origin central cord. Additional findings as above. Electronically signed by: Serge Guerra MD 12/19/2019 2:27 PM [facility]
== END ==
LOC: MRI 08:46
PROVIDERS: ATTEND Family Medicine
DX: M72.2 Plantar fascial fibromatosis (principal); S92.244A Nondisplaced fracture of medial cuneiform of right foot, initial encounter for closed fracture; R60.0 Localized edema

== ENCOUNTER → 2019-12-28 | Outpatient (CLI) | payer BC ==
--- NOTE | 2019-12-29 09:06 | RAD ---
EXAM: Ankle,Right 3 Views INDICATION: 64 years Female, ANKLE PN COMPARISON: MR right ankle 12/19/2019 FINDINGS: 3 views of the right ankle were performed. No acute fracture or dislocation is identified at the right ankle joint. Minimal degenerative change at the ankle. No destructive osseous lesion. Tiny 1-2 mm ossific densities in the lateral soft tissues at the level of the fibular diametaphysis appear to represent vascular calcifications/phleboliths. Soft tissue edema in the dorsal midfoot. Known nondisplaced fracture of the intermediate cuneiform would be better visualized on radiographs of the foot, if clinically desired. Small plantar calcaneal spur is noted. IMPRESSION: 1. Soft tissue edema at the dorsal midfoot. No nondisplaced fracture of the intermediate cuneiform would be better visualized on radiographs of the foot if clinically desired. 2. No right ankle joint fracture or dislocation. Electronically signed by: Grecia Castellano MD 12/29/2019 9:04 AM [facility] [place]
== END ==
LOC: RAD 12:55
PROVIDERS: ATTEND Orthopaedic Surgery
DX: M25.571 Pain in right ankle and joints of right foot (principal); R60.0 Localized edema

== ENCOUNTER → 2020-01-26 | Outpatient (CLI) | payer BC ==
--- NOTE | 2020-01-26 17:39 | RAD ---
EXAM DESCRIPTION: Foot,Right 3 Views CLINICAL HISTORY: FX OF TARSAL BONES OF RIGHT FOOT COMPARISON: None. TECHNIQUE: 3 views right FINDINGS: A mild hallux valgus deformity is observed. Mild diffuse osteopenia is seen. A plantar calcaneal spur is noted. Mild degenerative changes are observed in the intertarsal articulations. IMPRESSION: Mild degenerative changes are observed. No tarsal fractures are identified. Electronically signed by: Patel Ramos MD 01/26/2020 5:38 PM [facility]
== END ==
LOC: RAD 08:30
PROVIDERS: ATTEND Orthopaedic Surgery
DX: S92.201D Fracture of unspecified tarsal bone(s) of right foot, subsequent encounter for fracture with routine healing (principal); M19.071 Primary osteoarthritis, right ankle and foot

== ENCOUNTER → 2020-02-12 | Outpatient (CLI) | payer BC ==
--- NOTE | 2020-02-12 13:09 | RAD ---
EXAM DESCRIPTION: Foot,Right 3 Views CLINICAL HISTORY: CLOSED FX OF CUNEIFORM BONE OF FOOT COMPARISON: January 26, 2020 IMPRESSION: 3 views of the right foot show mild cortical irregularity of the distal portion of the cuboid bone which could represent nondisplaced fracture without significant periosteal reaction or callus formation compared to previous. No new fracture or dislocation is seen. Osseous structures are diffusely osteopenic. Mild hallux valgus deformity of the first metatarsophalangeal joint is seen. Moderate plantar enthesophyte of the calcaneus. Mild vascular calcifications. Electronically signed by: Shad Donis MD 02/12/2020 1:08 PM [facility]
== END ==
LOC: RAD 09:41
PROVIDERS: ATTEND Orthopaedic Surgery
DX: M89.9 Disorder of bone, unspecified (principal); M20.11 Hallux valgus (acquired), right foot; M77.31 Calcaneal spur, right foot; I70.213 Atherosclerosis of native arteries of extremities with intermittent claudication, bilateral legs

== ENCOUNTER 2020-02-29 10:01 | Emergency (ER) | payer BC ==
--- NOTE | 2020-02-29 11:35 | RAD ---
EXAM DESCRIPTION: Chest,1 View CLINICAL HISTORY: 64 years Female, shortness of breath COMPARISON: 10/04/2019 TECHNIQUE: Single view radiograph of the chest. IMPRESSION: Normal size cardiac silhouette. Partially calcified aorta. Right basilar atelectasis or scarring. No pleural effusion or pneumothorax. Included osseous structures intact. Electronically signed by: Jagdish Vega MD 02/29/2020 11:33 AM [employer]
[2020-02-29] MEDS ORDERED: PENICILLIN BENZATHINE 1.2 MU 1.2 MU/2 ML SYG IM ONE ×2 (13:12→14:23)
--- NOTE | 2020-02-29 14:29 | ED.PDOC ---
History of Present Illness - General Chief Complaint: Respiratory Problem Stated Complaint: SOB , cough Time Seen by Provider: 02/29/20 10:54 Source: patient Exam Limitations: no limitations Additional Information: The patient is a 61-year-old female sent over from her primary care physicians for upper respiratory symptoms and shortness of breath. - History of Present Illness Timing/Duration: other - 4 DAYS Severity: moderate Activities at Onset: none Possible Cause: occasional episodes Improving Factors: nothing Worsening Factors: nothing Associated Symptoms: cough Respiratory Risk Factors: exposure to illness Allergies/Adverse Reactions: Allergies Codeine Allergy (Verified 02/29/20 11:45) Sulfa Antibiotics Allergy (Verified 02/29/20 11:45) Home Medications: Ambulatory Orders Amlodipine Besylate-Benazepril [Lotrel 10-20 mg] 1 cap PO DAILY 12/26/14 Raloxifene HCl [Evista] 60 mg PO DAILY 12/26/14 Atorvastatin Calcium [Lipitor] 10 mg PO DAILY 07/04/19 Ergocalciferol [Vitamin D] 50,000 unit PO .WEEKLY 07/04/19 Vortioxetine HBr [Trintellix] 20 mg PO DAILY 07/04/19 Review of Systems - Review of Systems Constitutional: Denies: chills, fever EENTM: States: nose congestion. Denies: eye pain, blurred vision, tearing Respiratory: States: cough, short of breath Cardiology: Denies: chest pain, syncope Gastrointestinal/Abdominal: Denies: abdominal pain, diarrhea, nausea Genitourinary: Denies: discharge, hematuria Musculoskeletal: Denies: back pain, gout, muscle pain, muscle stiffness Skin: States: see HPI. Denies: change in color, dryness Neurological: Denies: anxiety, depressed, emotional problems, numbness, paresthesia, pre-existing deficit Endocrine: Denies: excessive sweating, increased thirst, increased urine Hematologic/Lymphatic: Denies: anemia, easy bleeding, easy bruising Past Medical History (General) - Patient Medical History Hx Seizures: No Hx Stroke: No Hx Asthma: No Hx of COPD: Yes - left lung lobetecomy Hx Congestive Heart Failure: No Hx Pacemaker: No Hx Hypertension: Yes Hx Diabetes: No Hx Gastroesophageal Reflux: Yes Hx Cancer: Yes - lung Hx MRSA: No Surgical History: Hysterectomy - Vaccination History Hx Tetanus, Diphtheria Vaccination: No Hx Influenza Vaccination: No Hx Pneumococcal Vaccination: Yes - Social History Hx Tobacco Use: Yes Hx Alcohol Use: No Hx Substance Use: No Hx Physical Abuse: No Hx Emotional Abuse: No - Female History Patient is a Female of Child Bearing Age (10 -59 yrs old): No Family Medical History - Family History Mother Family History: Unknown Hx Family Cancer: Yes - ovarian Physical Exam - Physical Exam General Appearance: Alert, Comfortable Eyes, Ears, Nose, Throat Exam: PERRL/EOMI, TMs normal, pharynx normal, scleral icterus (R) Neck: non-tender, full range of motion, supple, normal inspection, carotid bruit Respiratory: chest non-tender, lungs clear, normal breath sounds, no respiratory distress, no accessory muscle use Cardiovascular/Chest: normal peripheral pulses, regular rate, rhythm, no edema, no gallop Peripheral Pulses: radial,right: 2+, radial,left: 2+ Gastrointestinal/Abdominal: normal bowel sounds, non tender, soft Rectal Exam: normal exam, normal rectal tone Extremity: normal range of motion, non-tender, normal inspection Neurologic: postulant II-XII nml as tested, no motor/sensory deficits, alert Skin Exam: normal color, warm/dry Progress - Progress Progress: 02/29/20 14:28 CMP patient is down and takes a long time to get BMP results. Patient is very unhappy about that. Stating she would leave AMA explained to the patient that Lab equipment was and apologize for the delay. She verbalized understanding. The patient is positive adenovirus return precautions and follow-up instructions given to the patient. She verbalized understanding - EKG/XRAY/CT EKG: Yash, nonspecific ST T wave Chg Comments: EKG done at 1113, heart rate of [address] segment CT Ordered: No CT Interpretation Call Back: No Departure - Departure Clinical Impression: Adenovirus infection Disposition: Discharge to Home or Self Care Departure Forms: ED Discharge - Pt. Copy, Patient Portal Self Enrollment Instructions: Adenovirus Infections Referrals: Benoit Zimmerman MD [Primary Care Provider] - 1-2 Weeks Home Medications: Ambulatory Orders Amlodipine Besylate-Benazepril [Lotrel 10-20 mg] 1 cap PO DAILY 12/26/14 Raloxifene HCl [Evista] 60 mg PO DAILY 12/26/14 Atorvastatin Calcium [Lipitor] 10 mg PO DAILY 07/04/19 Ergocalciferol [Vitamin D] 50,000 unit PO .WEEKLY 07/04/19 Vortioxetine HBr [Trintellix] 20 mg PO DAILY 07/04/19 Additional Instructions: Please follow-up with her primary care physician 1-2 DAYS -Return to the emergency department if develop any trouble breathing and chest pain or if any further concerns.
[2020-02-29 15:13] VITALS: BP 161/102; TEMP 97.4; O2SAT 97
== END 2020-02-29 14:55 | disposition home or self-care (01) ==
LOC: ER 10:01
DX: R06.02 Shortness of breath (principal); B34.0 Adenovirus infection, unspecified; R05 Cough; R00.1 Bradycardia, unspecified; J44.9 Chronic obstructive pulmonary disease, unspecified; I10 Essential (primary) hypertension; K21.9 Gastro-esophageal reflux disease without esophagitis; Z20.822 Contact with and (suspected) exposure to COVID-19; Z85.118 Personal history of other malignant neoplasm of bronchus and lung; Z79.899 Other long term (current) drug therapy; Z88.2 Allergy status to sulfonamides; Z88.5 Allergy status to narcotic agent; Z87.891 Personal history of nicotine dependence
CPT/HCPCS: 36415; 71045; 80048; 80076; 82550; 83615; 83735; 83880; 84484; 85025; 85379; 85730; 86140; 87486; 87581; 87633; 87635; 93005; J0561

== ENCOUNTER 2020-03-24 14:49 | Emergency (ER) | payer BC ==
[2020-03-24] MEDS ORDERED: SODIUM CHLORIDE 0.9% 1000ML 1,000 ML IVS PRN (15:08)
[2020-03-24] MEDS ORDERED: ONDANSETRON INJ 4 MG/2 ML VIAL IV ONE (15:08)
[2020-03-24] MEDS ORDERED: SODIUM CHLORIDE 0.9% (FLUSH) 10 ML SYG IV PRN (15:08)
[2020-03-24] MEDS ORDERED: MORPHINE SULFATE INJ 10 MG/ML VIAL IV ONE (15:09)
--- NOTE | 2020-03-24 15:19 | ED.PDOC ---
History of Present Illness - General Chief Complaint: GI Problem Stated Complaint: abd pain n/v Time Seen by Provider: 03/24/20 15:03 Information Source: patient, RN notes reviewed, Vital Signs reviewed Exam Limitations: no limitations - History of Present Illness Initial Comments: Pt reports 4 day h/p diffuse crampy abdominal pain with nausea and vomiting. States she felt better yesterday, then symptoms returned this morning. Has had nonproductive cough as well. Has used Phenergan at home with some relief. She denies fever, chills, diarrhea, CP or shortness of breath. Denies any recent sick contacts or COVID exposure. Review of Systems - Review of Systems Constitutional: Denies: chills, fever EENTM: Denies: blurred vision, throat pain Respiratory: States: cough. Denies: short of breath Cardiology: Denies: chest pain, palpitations, syncope Gastrointestinal/Abdominal: States: abdominal pain, nausea, vomiting. Denies: diarrhea Genitourinary: Denies: dysuria, frequency, hematuria Musculoskeletal: Denies: back pain, neck pain Neurological: Denies: headache, paresthesia All other Systems: Reviewed and Negative Past Medical History (General) - Patient Medical History Hx Seizures: No Hx Stroke: No Hx Asthma: No Hx of COPD: Yes - left lung lobetecomy Hx Congestive Heart Failure: No Hx Pacemaker: No Hx Hypertension: Yes Hx Diabetes: No Hx Gastroesophageal Reflux: Yes Hx Cancer: Yes - lung Hx Hepatitis C: No Hx MRSA: No Surgical History: Hysterectomy - Vaccination History Hx Tetanus, Diphtheria Vaccination: No Hx Influenza Vaccination: Yes Hx Pneumococcal Vaccination: Yes - Social History Hx Tobacco Use: No Hx Alcohol Use: No Hx Substance Use: No Hx Substance Use Treatment: No Hx Depression: No Hx Physical Abuse: No Hx Emotional Abuse: No - Female History Patient is a Female of Child Bearing Age (10 -59 yrs old): No Patient : No Family Medical History - Family History Mother Family History: Unknown Hx Family Cancer: Yes - ovarian Physical Exam - Physical Exam General Appearance: Alert, Comfortable, No apparent distress Neck: non-tender, full range of motion, supple Respiratory: chest non-tender, lungs clear, normal breath sounds, no respiratory distress, no accessory muscle use Cardiovascular/Chest: regular rate, rhythm, no murmur Gastrointestinal/Abdominal: other - Soft. Mild TTP diffusley. No guarding or rigidity Back Exam: no CVA tenderness, no vertebral tenderness Extremity: normal range of motion, non-tender, normal inspection Neurologic: no motor/sensory deficits, alert, normal mood/affect Skin Exam: normal color, warm/dry Progress - Progress Progress: 03/24/20 16:53 Pt presents with 3-4 day h/o crampy abd pain, N/V. CXR and COVID are negative. CT A/P performed to evaluate for infection vs obstructive cause and is unremarkable. Clinically pt is dehydrated and given 2L IVF. Creatinine 2.0, likely due to volume depletion. KCl given due to low potassium and will continue supplem,ent at home and f/u with PCP in 1-2 days for recheck. Pt feels improved and tolerating po fluids well. SRP given. - Results/Orders Results/Orders: EKG- Rate 75, sinus rhythm with sinus arrythmia, no ST abnormality CHEST XRAY EXAM DESCRIPTION: Chest,1 View CLINICAL HISTORY: cough COMPARISON: February 29, 2020 FINDINGS: The cardiac silhouette is at the upper limits of normal size, stable. Mural calcification in the thoracic aorta. There is no airspace consolidation or pleural effusion. The bronchovascular markings are within normal limits, and the lungs are not hyperinflated. There is no pneumothorax or acute fracture. IMPRESSION: No acute findings. If symptoms persist or worsen, PA and lateral chest radiograph or chest CT is suggested CT ABDOMEN/PELVIS IMPRESSION: No acute intra-abdominal abnormality is identified. COVID NEGATIVE 03/24/20 15:08 Sodium Chloride 0.9% (Flush) [Saline Flush Syringe] 10 ml IV PRN PRN Sodium Chloride 0.9% 1000ML [Ns 1000 ml] 1,000 ml IVS .QD EKG Assessment ONCE 03/24/20 15:09 Hold Metformin x 48Hrs [id number] 03/24/20 15:15 EKG STAT 03/24/20 15:55 Sodium Chloride 0.9% 1000ML [Ns 1000 ml] 1,000 ml IVS ONCE Laboratory Results - last 24 hr 03/24/20 03/24/20 03/24/20 15:16 15:16 15:16 WBC 11.3 H RBC 5.48 H Hgb 16.0 Hct 46.8 MCV 85.6 MCH 29.2 MCHC 34.2 RDW 13.1 Plt Count 248 MPV 9.5 Absolute Neuts (auto) 9.40 H Absolute Lymphs (auto) 1.40 Absolute Monos (auto) 0.40 Absolute Eos (auto) 0.00 Absolute Basos (auto) 0.10 Neutrophils % 83.3 H Lymphocytes % 12.3 L Monocytes % 3.6 Eosinophils % 0.1 L Basophils % 0.7 Sodium 135 Potassium 2.8 L Chloride 97 L Carbon Dioxide 22 Anion Gap 18.8 H BUN 39 H Creatinine 2.02 H BUN/Creatinine Ratio 19.3 Random Glucose 128 H Serum Osmolality 281.1 Calcium 9.5 Total Bilirubin 1.1 H AST 31 ALT 22 Alkaline Phosphatase 90 Serum Total Protein 7.5 Albumin 4.5 Globulin 3.0 Albumin/Globulin Ratio 1.5 Lipase 22 Urine Color Urine Appearance Urine pH Ur Specific [place] Urine Protein Urine Glucose (UA) Urine Ketones Urine Blood Urine Nitrite Urine Bilirubin Urine Urobilinogen Ur Leukocyte Esterase Urine RBC Urine WBC Ur Epithelial Cells Urine Bacteria 03/24/20 16:01 WBC RBC Hgb Hct MCV MCH MCHC RDW Plt Count MPV Absolute Neuts (auto) Absolute Lymphs (auto) Absolute Monos (auto) Absolute Eos (auto) Absolute Basos (auto) Neutrophils % Lymphocytes % Monocytes % Eosinophils % Basophils % Sodium Potassium Chloride Carbon Dioxide Anion Gap BUN Creatinine BUN/Creatinine Ratio Random Glucose Serum Osmolality Calcium Total Bilirubin AST ALT Alkaline Phosphatase Serum Total Protein Albumin Globulin Albumin/Globulin Ratio Lipase Urine Color Yellow Urine Appearance Clear Urine pH 5.5 Ur Specific [place] 1.025 Urine Protein Negative Urine Glucose (UA) Negative Urine Ketones 15 H Urine Blood Small H Urine Nitrite Negative Urine Bilirubin Negative Urine Urobilinogen 0.2 Ur Leukocyte Esterase Negative Urine RBC 3-5 H Urine WBC 0 Ur Epithelial Cells 3-5 Urine Bacteria 0 Departure - Departure Clinical Impression: Hypokalemia Abdominal pain Qualifiers: Abdominal location: generalized Qualified Code(s): R10.84 - Generalized abdominal pain Vomiting Qualifiers: Vomiting type: unspecified Vomiting Intractability: non-intractable Nausea presence: with nausea Qualified Code(s): R11.2 - Nausea with vomiting, unspecified Leukocytosis Qualifiers: Leukocytosis type: unspecified Qualified Code(s): D72.829 - Elevated white blood cell count, unspecified Time of Disposition: 16:50 Disposition: Discharge to Home or Self Care Condition: Fair Departure Forms: ED Discharge - Pt. Copy, Patient Portal Self Enrollment Instructions: Nausea and Vomiting, Adult (DC) Diet: bland diet Activity: increase activity as tolerated Referrals: Benoit Zimmerman MD [Primary Care Provider] - 1-2 Days Prescriptions: Ondansetron HCl [Zofran] 4 mg PO Q6HR PRN #15 tab PRN Reason: Nausea Potassium Chloride Tab [K-Dur] 20 meq PO DAILY #14 tab Home Medications: Ambulatory Orders Amlodipine Besylate-Benazepril [Lotrel 10-20 mg] 1 cap PO DAILY 12/26/14 Raloxifene HCl [Evista] 60 mg PO DAILY 12/26/14 Atorvastatin Calcium [Lipitor] 10 mg PO DAILY 07/04/19 Ergocalciferol [Vitamin D] 50,000 unit PO .WEEKLY 07/04/19 Vortioxetine HBr [Trintellix] 20 mg PO DAILY 07/04/19 Albuterol Inhaler [Ventolin Hfa Inhaler] 1 puff INH PRN PRN 03/24/20 Aspirin [Baby Aspirin] 81 mg PO QD 03/24/20 Esomeprazole Magnesium [Nexium] 20 mg PO DAILY 03/24/20 Hydrochlorothiazide 12.5 mg PO DAILY 03/24/20 Ondansetron HCl [Zofran] 4 mg PO Q6HR PRN #15 tab 03/24/20 Potassium Chloride Tab [K-Dur] 20 meq PO DAILY #14 tab 03/24/20 Umeclidinium-Vilanterol [Anoro Ellipta 62.5-25 Mcg/INH] 1 aer IN 03/24/20
--- NOTE | 2020-03-24 15:35 | RAD ---
EXAM DESCRIPTION: Chest,1 View CLINICAL HISTORY: cough COMPARISON: February 29, 2020 FINDINGS: The cardiac silhouette is at the upper limits of normal size, stable. Mural calcification in the thoracic aorta. There is no airspace consolidation or pleural effusion. The bronchovascular markings are within normal limits, and the lungs are not hyperinflated. There is no pneumothorax or acute fracture. IMPRESSION: No acute findings. If symptoms persist or worsen, PA and lateral chest radiograph or chest CT is suggested Electronically signed by: Aramis Knutson MD 03/24/2020 3:33 PM [facility]
[2020-03-24] MEDS ORDERED: SODIUM CHLORIDE 0.9% 1000ML 1,000 ML IVS ONE (15:55)
--- NOTE | 2020-03-24 16:42 | CT ---
EXAM DESCRIPTION: Abdoment/Pelvis w/o Contrast CLINICAL HISTORY: 64 years Female Abd pain, vomiting COMPARISON: 10/04/2019. TECHNIQUE: Contiguous axial images obtained through the abdomen and pelvis without IV contrast. Reformatted images obtained. This exam was performed according to our department optimization program which includes automated exposure control, adjustment of the mA and/or kv according to patient size and/or use of iterative reconstruction technique. FINDINGS: Mild scarring/atelectasis at the left lung base. Small hiatal hernia. The liver appears unremarkable. The spleen and pancreas appear unremarkable. No adrenal masses. The kidneys appear unremarkable. No hydronephrosis or definite ureteral calculi. The gallbladder is visualized. Atherosclerotic calcifications. No aneurysmal dilatation of the aorta. There is similar fatty infiltration of the colonic wall. No bowel obstruction. The appendix appears unremarkable. No significant free pelvic fluid. There are changes from previous hysterectomy. There is a small fat-containing ventral abdominal wall hernia. There is a small fat-containing umbilical hernia. IMPRESSION: No acute intra-abdominal abnormality is identified. Other findings as above. Electronically signed by: Brett Whitman MD 03/24/2020 4:40 PM [facility]
[2020-03-24 16:47] VITALS: BP 117/65; O2SAT 96
[2020-03-24] MEDS ORDERED: POTASSIUM CHLORIDE 20 MEQ TAB PO ONE (16:57)
[2020-03-24 17:06] VITALS: TEMP 97.6
== END 2020-03-24 17:06 | disposition home or self-care (01) ==
LOC: ER 14:49
DX: R10.84 Generalized abdominal pain (principal); R11.2 Nausea with vomiting, unspecified; D72.829 Elevated white blood cell count, unspecified; E87.6 Hypokalemia; J44.9 Chronic obstructive pulmonary disease, unspecified; I10 Essential (primary) hypertension; K21.9 Gastro-esophageal reflux disease without esophagitis; Z85.118 Personal history of other malignant neoplasm of bronchus and lung; Z20.822 Contact with and (suspected) exposure to COVID-19
CPT/HCPCS: 36415; 71045; 74176; 80053; 81001; 83690; 85025; 87635; 93005; J2270; J2405; J7030